=== PATIENT | female | born 1985 | race Caucasian/White ===

== ENCOUNTER 2016-11-24 20:06 | Emergency (ER) | payer OTHER ==
[~2016-11-24] VITALS: Ht 157.5 cm; Wt 63.5 kg
[~2016-11-24 20:06] MED LIST: FAMO-18 PO; FERR-55 PO; HYDR-3498 PO; OMEP20CA9 PO; PREN1TAB17 PO; RANI150T5 PO; RANI150T9 PO
[2016-11-24 20:11] VITALS: Ht 157.5 cm; Wt 63.5 kg
[2016-11-24] MEDS ORDERED: HC1C30 TOP (20:19)
[2016-11-24] MEDS ORDERED: IBUP-1542 PO (20:19)
--- NOTE | 2016-11-24 20:40 | ERD ---
ER Documentation Chief Complaint Date/Time DATE: 11/24/16 TIME: 20:39 Chief Complaint possible insect bite to left palm, c/o rash/burning/pain HPI 31-year-old female comes bite to the left palm while cleaning her attic yesterday. She felt wheezing, and complains of redness, burning pain that is localized. She denies fevers, chills, itching. She denies drainage. She denies trauma. ROS All systems reviewed and are negative except as per history of present illness. Medications Home Meds Active Scripts Hydrocortisone* Topical (Hydrocortisone* Topical) 1%-28.35 Gm Cream..g., 1 APPLIC TOP Q6 Y for ITCHING, #1 TUB Prov:DEVIN CORONEL PA-C 11/24/16 Ibuprofen* (Motrin*) 600 Mg Tab, 600 MG PO Q6, #20 TAB Prov:DEVIN CORONEL PA-C 11/24/16 Famotidine* (Pepcid*) 20 Mg Tablet, 20 MG PO BID for 4 Days, #30 TAB Prov:ADITI BLANKENSHIP PA-C 01/30/16 Hydrocodone Bit-Acetaminophen* ([place]*) 5-325 Mg Tab, 1 TAB PO Q6 Y for PAIN, # 7 TAB Prov:DEVIN CORONEL PA-C 05/26/15 Ranitidine Hcl* (Zantac*) 150 Mg Tablet, 150 MG PO BID Y for PAIN, #30 TAB Prov:DEVIN CORONEL PA-C 05/26/15 Omeprazole* (Prilosec*) 20 Mg Capsule.dr, 20 MG PO DAILY, #30 CAP Prov:DEVIN CORONEL PA-C 05/26/15 Ranitidine Hcl* (Ranitidine Hcl*) 150 Mg Tablet, 150 MG PO HS for 7 Days, TAB Prov:JERI ROMAN 03/31/15 Reported Medications Vit-Iron Fumarate-FA ( Tablet) 1 Each Tablet, 1 PO 08/30/13 Ferrous Sulfate* (Ferrous Sulfate*) 325 Mg Tablet, 325 MG PO AC MEALS 08/20/13 Allergies Allergies: Coded Allergies: No Known Allergies (Verified Allergy, Mild, 11/24/16) PMhx/Soc History of Surgery: Yes ( x3, uterus remval, cholecystectomy) Anesthesia Reaction: No Hx Neurological Disorder: No Hx Respiratory Disorders: No Hx Cardiac Disorders: No Hx Psychiatric Problems: No Hx Miscellaneous Medical Probl: Yes (Anemia, HTN) Hx Alcohol Use: No Hx Substance Use: No Hx Tobacco Use: No Physical Exam Vitals Vital Signs Date Time Temp Pulse Resp B/P Pulse Ox O2 Delivery O2 Flow Rate FiO2 11/24/16 20:11 97.2 85 20 98/124 75 Physical Exam =General: Well-developed, well-nourished. The patient appears in no acute distress. HEENT: Head is normocephalic, atraumatic. No scleral icterus. Neck: Supple. Nontender. Lungs: Clear to auscultation. Normal air movement. Heart: Regular rate and rhythm. S1 and S2 are normal. No murmurs, gallops, or rubs. Abdomen: Nondistended. Extremities: No clubbing or cyanosis. Moving extremities x 4. No weakness. Neurologic: Alert and oriented 3. No focal deficits. Normal speech and gait. Skin: Being that is seen on the left hyper thenar surface that is approximately 2 cm, it is erythematous, no vesicles, no abscess seen. No cellulitis, no lymphatic streaking, no signs of trauma. Procedures/MDM 31-year-old female comes in with insect bite versus sting, but appears to be benign. There is no evidence of abscess, cellulitis, lymphatic streaking, necrotic tissue, trauma, tenosynovitis, fracture signs of septic arthritis. Departure Diagnosis: Primary Impression: Insect bite Condition: Good Patient Instructions: Insect Bites and Stings Additional Instructions: Call your primary care doctor TOMORROW for an appointment during the next 1-2 days.See the doctor sooner or return here if your condition worsens before your appointment time. DEVIN CORONEL PA-C Nov 24, 2016 20:40
== END 2016-11-24 20:18 | disposition home or self-care (01) ==
LOC: E/R 20:06 → FTE 20:18
DX: S60.562A Insect bite (nonvenomous) of left hand, initial encounter (principal); I10 Essential (primary) hypertension; W57.XXXA Bitten or stung by nonvenomous insect and other nonvenomous arthropods, initial encounter; Y92.9 Unspecified place or not applicable
CPT/HCPCS: 99283

== ENCOUNTER 2017-03-27 09:39 | Outpatient (CLI) | payer OTHER ==
[~2017-03-27] VITALS: Ht 157.5 cm; Wt 65.5 kg
[~2017-03-27 09:39] MED LIST changes: -FAMO-18 PO; +FAMO-96 PO; +HC1C30 TOP; +IBUP-1542 PO
[2017-03-27 10:03] VITALS: BP 135/78; PULSE 79; RESP 16
[2017-03-27] MEDS ORDERED: HYDR12.58 PO (10:03)
[2017-03-27 10:04] VITALS: Ht 157.5 cm; Wt 65.5 kg
--- NOTE | 2017-03-27 11:43 | CONS ---
DATE OF ADMISSION: 03/27/2017 DATE OF CONSULTATION: 03/27/2017 [facility] INITIAL OUTPATIENT CONSULTATION NOTE PLACE OF SERVICE: [facility] Dear Dr. Elliott: Thank you again for allowing us to participate in the care of this very pleasant lady and I am certa in her wonderful family. HISTORY OF PRESENT ILLNESS: The patient is a very pleasant 31-year-old lady with only a few comorbi dities including a slight elevation in BMI of 26 and previous diagnosis of possible NAFLD (nonalcoho lic fatty liver disease) who has been having left breast pain for the last year and a half. She rep orts fairly stable type of symptoms of pain with slight increase in amount of it, especially when sh e is holding her child. She has not had any previous known breast cancer and her risk factors are f airly typical with 1 paternal aunt with breast cancer and another paternal aunt with stomach cancer. No family history of uterine cancer or ovarian cancer in other women in the family. No men with b reast cancer. She also does not report any difficulties with breast discharge, breast asymmetry, ne w masses or previous masses that she has felt or any other complaints from her breast. She has 4 ch ildren. She does not smoke and she does not use intravenous drugs. No other major complaints. PAST MEDICAL HISTORY: 1. Possible nonalcoholic fatty liver disease with slight elevation in AST and ALT in 04/2016 and , which were mild in nature (62 and 118, improved to 31 and 59). She has been followed by Dr. Kelechi Dejesus. She also has immunity to hepatitis A and hepatitis B. 2. Vaginal hysterectomy, laparoscopic,2014. 3. Cholecystectomy, laparoscopic, 2011. ALLERGIES: NO KNOWN DRUG ALLERGIES. HOME MEDICATIONS: No routine medications taken. SOCIAL HISTORY: The patient was born in [place], [place]. She is and has 4 childr en, the oldest of which is 10 years old and the youngest is 2 years old. She is currently unemploye d. She does not report any smoking, drinking, or intravenous drug use. FAMILY HISTORY: As above, 1 paternal aunt with breast cancer, 1 paternal aunt with stomach cancer. No other major mention of medical, surgical or oncologic problems in the family. REVIEW OF SYSTEMS: Other than the above-mentioned, there are no other pertinent positives or pertin ent negatives in a complete 14-point review of systems. PHYSICAL EXAMINATION: GENERAL: The patient appears to be a very pleasant lady of descent, appearing st ated age, sitting in a chair comfortably and in no acute distress. VITAL SIGNS: Show afebrile state and otherwise normal and stable vital signs. Her BMI is 26. HEENT: Head is normocephalic and atraumatic. Her extraocular muscles and hearing are grossly intac t bilaterally and symmetrically. Her sclerae are nonicteric. Her oral cavity is clear and her oral mucosa appeared to be pink and moist. NECK: Supple. There is no lymphadenopathy or JVD. There is no submental, submandibular or supracl avicular lymphadenopathy. CHEST: Rises symmetrically with each breath, and she is breathing comfortably. A careful and thoro ugh breast examination was done as follows: Her right breast exam included palpation of the axilla and no lumps were found, or other abnormaliti es. A careful manual examination of the right breast, demonstrated no palpable masses in any of the quadrants. Breast tissue appeared to be normal. The nipple areolar complex was free of any masses . There was a very tiny drop of discharge on expression of the right nipple areolar complex which w as milky in character, but very little and no other concerning features on the right. Left breast exam also included a careful evaluation of the axillary region and there was no lymphade nopathy in this area. Careful examination of the left breast also demonstrated no evidence of any m asses. The area of tenderness was right at the outer rim of the nipple and areolar complex at the 1 2 o'clock region. She pointed to the area with 1 finger and said that this was the area that had be en giving her symptoms throughout the last year and a half. No obvious masses palpable in this ingrid on. Both breasts were examined with arms down and up bilaterally and symmetrically, and there was n o breast deformity or other asymmetry noted. ABDOMEN: Unremarkable with a soft, nontender and nondistended abdomen with no evidence of hepatomeg oh, caput medusae, engorged subcutaneous veins, or hernias. EXTREMITIES: Her lower extremities contain no pitting edema around the ankles bilaterally and symme trically. SKIN: Appeared to be pink and felt warm to touch. NEUROLOGIC: She was awake, alert, and followed commands appropriately. LABORATORY DATA: The latest values available are from 2016 and are fairly unremarkable. IMAGING: The patient has had a breast ultrasounds done on 09/02/2016 and repeated 01/23/2017. The January ultrasound and the August both indicated normal parenchyma, although the 01/2017 did discuss a 19 x 19 x 10 mm fusiform hypoechoic mildly heterogeneous lesion at 7 o'clock position and another l esion at 3 o'clock position, both areas probably representing normal parenchyma on the right side. No mention of BI-RADS category and no other characteristics. I also personally reviewed these image s and I agree in general with the reported findings, although it is difficult to say based on still images. ASSESSMENT AND PLAN: A very pleasant and otherwise fairly healthy 31-year-old young lady with left breast pain of unclear etiology. There is certainly no masses or other concerning features that wou ld raise the question of malignancy. I do believe that she can benefit from more formal evaluation of her breasts and I have ordered bilateral breast ultrasounds and mammography to be done and furthe r clinical decisions are to be made after careful evaluation of the above images. I also did discus s with her the importance of permanent lifestyle changes towards more healthy living and ways to ach ieve that. We spent approximately 15 minutes of counseling time on this. Patient appeared to under stand and agree with plans. With above assessment I have recommended the followin. Bilateral breast ultrasounds and mammography. 2. Further possible interventions versus ultrasound follow up after above. 3. Permanent lifestyle changes to achieve a BMI between 18 to 24. Thank you again for allowing us to participate in the care of this very pleasant lady and her wonder ful family. If there are any questions, please feel free to contact me at [phone]. Dictated By: KARL OLGUIN/NTS Conf#: [id number] DID#: [id number] CC: VICTOR HUGO ELLIOTT MD; Atif Cotton MD;*End*
== END 2017-03-27 17:00 | disposition home or self-care (01) ==
LOC: HPC 09:39
PROVIDERS: ATTEND Transplant Surgery
DX: N64.4 Mastodynia (principal)
CPT/HCPCS: G0463

== ENCOUNTER 2017-05-24 09:01 | Outpatient (CLI) | END 2017-05-24 17:00 | disposition home or self-care (01) ==

== ENCOUNTER 2017-09-20 10:12 | Outpatient (CLI) | END 2017-09-20 15:55 | disposition home or self-care (01) ==